=== PATIENT | male | born 1960 | race Caucasian/White ===

== ENCOUNTER → 2024-02-07 09:10 | Outpatient (CLI) | payer OTHER, SELFPAY ==
[2024-02-07 11:28] LABS: Hemoglobin A1C% w Est Avg Glu 7.1 % (4.0-6.0)
[2024-02-07 11:44] LABS: Alanine Aminotransferase 46 IU/L (<50); Albumin 4.5 g/dL (3.5-5.0); Albumin Globulin Ratio 1.6 (1.0-2.8); Alkaline Phosphatase 75 U/L (38-126); Aspartate Aminotransferase 39 IU/L (17-59); BUN Creatinine Ratio 23.1 (6-22); Bilirubin Total 0.6 mg/dL (0.2-1.3); Blood Urea Nitrogen 15 mg/dL (9-20); Calcium 9.1 mg/dL (8.4-10.2); Carbon Dioxide 21 mmol/L (22-32); Chloride 107 mmol/L (98-107); Cholesterol 92 mg/dL (140-199); Estimated Glomerular Filt Rate > 60 mL/min (>60); Globulin 2.8 g/dL (1.7-4.1); Glucose 134 mg/dL (80-110); HDL Cholesterol 37 mg/dL (40-60); HEMOLYSIS < 15 (0-50); LDL Cholesterol Calculated 42 mg/dL (<100); Potassium 4.6 mmol/L (3.4-5.1); Sodium 139 mmol/L (137-145); Total Protein 7.3 g/dL (6.3-8.2); Triglycerides 67 mg/dL (35-150)
[2024-02-07 12:07] LABS: HIV 1 & 2 Ab/Ag 4th Gen Combo NEGATIVE (NEGATIVE); Hep C Virus Ab w/Reflex Quant NEGATIVE s/c (NEGATIVE); Prostate Specific Antigen Scrn 0.396 ng/mL (0.1-4.0)
== END ==
PROVIDERS: PCP Family Medicine; Referring Provider Family Medicine; Visit Provider Family Medicine
DX: I42.2 Other hypertrophic cardiomyopathy (principal); I10 Essential (primary) hypertension; E78.5 Hyperlipidemia, unspecified; Z12.5 Encounter for screening for malignant neoplasm of prostate
CPT/HCPCS: 36415; 80053; 80061; 83036; 86803; 87389; G0103

== ENCOUNTER 2024-06-07 11:26 | Day surgery (SDC) | payer OTHER, SELFPAY ==
[2024-06-05 13:54] VITALS: BMI 30.7
[2024-06-07 13:01] VITALS: BP 131/74; PULSE 70; RESP 16; TEMP 36.5; O2SAT 95
--- NOTE | 2024-06-07 13:06 | PM.HP.1 ---
History of Present Illness History of Present Illness Date Patient Seen: 06/07/24 Time Patient Seen: 13:07 Chief complaint: Screening Colonoscopy Narrative: Jorden is a 63-year-old man here for colonoscopy. [facility]. Family history of colon cancer. [facility] Medical History (Updated 06/07/24 @ 13:07 by Storm Mendiola MD) Obesity Type 2 diabetes mellitus without complication, with no history of insulin use [place] on CPAP IFG (impaired fasting glucose) Hyperlipidemia Benign essential HTN Hypertrophic cardiomyopathy Social History household members: significant other Smoking Status: Former smoker alcohol intake: never Meds Home Medications and Allergies Home Medications Medication Instructions Recorded Confirmed Type diltiazem HCl 240 mg 240 mg PO DAILY 02/07/24 06/07/24 History capsule,extended release 24 hr losartan 50 mg tablet 50 mg PO DAILY 02/07/24 06/07/24 History metformin 500 mg tablet 1,000 mg PO DAILY 02/07/24 06/07/24 History rosuvastatin 5 mg tablet 5 mg PO DAILY 02/07/24 06/07/24 History sodium,potassium,mag sulfates 17.5 See Rx Instructions PO .COMPLEX 04/30/24 Rx gram-3.13 gram-1.6 gram oral soln #354 mL (Suprep Bowel Prep Kit) blood sugar diagnostic #100 ea 05/15/24 05/15/24 Rx semaglutide 1 mg/dose (4 mg/3 mL) 1 mg (0.75 mL) SUBCUT QWEEK #9 mL 05/15/24 06/07/24 Rx subcutaneous pen injector (Ozempic) Allergies Allergy/AdvReac Type Severity Reaction Status Date / Time No Known Drug Allergies Allergy Unverified 02/07/24 08:28 Exam Vital Signs (past 8 hours): - 06/07/24 13:01 Temperature 97.7 F Pulse Rate 70 Respiratory Rate 16 Blood Pressure 131/74 Pulse Oximetry 95 Oxygen Delivery Method Room Air Oxygen Delivery Method Room Air Const General: No acute distress Assessment & Plan Assessment and plan (1) Colon cancer screening: Status: Acute Plan Colonoscopy Time-Based Coding :: [TOTAL MINUTES] spent with patient and on the chart (including review of chart, obtaining history, exam, reviewing outside data, placing orders, documenting exam and treatment plan, and counseling patient) on [DATE].
[2024-06-07 13:38] VITALS: BP 93/67; PULSE 79; RESP 15; TEMP 37.1; O2SAT 94
--- NOTE | 2024-06-07 13:38 | PM.OP.COLON ---
Operative Date/Time/Diagnoses Date of procedure: 06/07/24 Time of procedure: 13:38 Pre-op diagnosis: Colon cancer screening Post-op diagnosis: same Procedure & Clinicians Study performed: Colonoscopy Same procedure as scheduled: Yes Surgeon: Storm Mendiola Procedure Notes Procedure in detail: Surgeon: Storm Mendiola MD Anesthesia: Cassia Daniels MD Procedure: The patient was brought to the endoscopy suite, placed in left lateral decubitus position. The patient was connected to monitoring devices. A time-out was performed. Sedation was administered. Once the patient was adequately sedated, a digital rectal exam was performed and was normal. The scope was then inserted and advanced to the cecum where the appendiceal orifice was identified and photographed. The scope was then slowly withdrawn over greater than 6 minutes. The mucosa was thoroughly inspected. No abnormalities were identified. The scope was retroflexed in the rectum. The scope was straightened and removed. The patient was awakened and brought to recovery. Scope withdrawal time: 9 minutes Sedation time: 21 minutes EBL: 0 Findings: Normal colon Post-procedure Recommendations: Colonoscopy in 10 years Disposition: PACU
[2024-06-07 13:44] VITALS: BP 100/70; PULSE 89; RESP 16; TEMP 37; O2SAT 95
== END 2024-06-07 14:05 | disposition home or self-care (01) ==
PROVIDERS: PCP Family Medicine; Referring Provider Surgery; Visit Provider Surgery
PROC: 0DJD8ZZ Inspection of Lower Intestinal Tract, Via Natural or Artificial Opening Endoscopic (ICD-10-PCS; CPT 45378; principal; 2024-06-07 13:00)
DX: Z12.11 Encounter for screening for malignant neoplasm of colon (principal)
CPT/HCPCS: 45378; J2704

== ENCOUNTER → 2024-08-31 08:55 | Outpatient (CLI) | payer OTHER, SELFPAY ==
[2024-08-31 10:14] LABS: Hemoglobin A1C% w Est Avg Glu 5.3 % (4.0-6.0)
== END ==
PROVIDERS: PCP Family Medicine; Referring Provider Family Medicine; Visit Provider Family Medicine
DX: E11.9 Type 2 diabetes mellitus without complications (principal)
CPT/HCPCS: 36415; 83036

== ENCOUNTER → 2025-05-14 11:02 | Outpatient (CLI) | payer OTHER, SELFPAY ==
[2025-05-14 12:38] LABS: Alanine Aminotransferase 41 IU/L (<50); Albumin 4.9 g/dL (3.5-5.0); Albumin Globulin Ratio 1.6 (1.0-2.8); Alkaline Phosphatase 74 U/L (38-126); Blood Urea Nitrogen 16 mg/dL (9-20); Calcium 9.4 mg/dL (8.4-10.2); Carbon Dioxide 25 mmol/L (22-32); Chloride 102 mmol/L (98-107); Cholesterol 104 mg/dL (140-199); Estimated Glomerular Filt Rate > 60 mL/min (>60); Globulin 3.0 g/dL (1.7-4.1); Glucose 109 mg/dL (70-99); HDL Cholesterol 45 mg/dL (40-60); HEMOLYSIS < 15 (0-50); Potassium 4.4 mmol/L (3.4-5.1); Sodium 138 mmol/L (137-145); Total Protein 7.9 g/dL (6.3-8.2); Triglycerides 84 mg/dL (35-150)
[2025-05-14 12:56] LABS: Hemoglobin A1C% w Est Avg Glu 5.8 % (4.0-6.0)
== END ==
PROVIDERS: PCP Family Medicine; Referring Provider Family Medicine; Visit Provider Family Medicine
DX: E11.9 Type 2 diabetes mellitus without complications (principal); G47.33 Obstructive sleep apnea (adult) (pediatric); E78.5 Hyperlipidemia, unspecified; I10 Essential (primary) hypertension
CPT/HCPCS: 36415; 80053; 80061; 83036